=== PATIENT | male | born 1975 ===

== ENCOUNTER 2018-04-12 12:53 | Emergency (ER) | payer OTHER, MEDICAID ==
[2018-04-12 12:53] VITALS: BMI 31.4
[2018-04-12 13:17] VITALS: O2SAT 96
[2018-04-12] MEDS ORDERED: Oxycodone/Acetaminophen 5/325 mg Tab PO STA (13:50)
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
[2018-04-12] MEDS ORDERED: Oxycodone/Acetaminophen 5/325 mg Tab ONE (13:58)
[2018-04-12 14:06] VITALS: BP 133/70; PULSE 78; RESP 16; TEMP 98.2
== END 2018-04-12 14:04 | disposition home or self-care (01) ==
LOC: C.ER 12:53
DX: R07.89 Other chest pain (principal)
CPT/HCPCS: 96372; 99285; J1885

== ENCOUNTER 2018-09-26 20:53 | Emergency (ER) | payer MEDICAID, OTHER ==
[2018-09-26 20:55] VITALS: BMI 31.4
[2018-09-26 21:22] VITALS: O2SAT 98
--- NOTE | 2018-09-26 22:27 | C.PDOC ---
History Of Present Illness 42 year old male, whose past medical history includes hypertension, presents to the ED with several complaints. Patient is requesting STD evaluation, stating his girlfriend has been "going around." Patient also reports left elbow swelling for one week after undergoing mild trauma. Upon triage, patient was found to be hypertensive. Patient reports longstanding noncompliance with his blood pressure medication. Patient denies fever, chills, extremity numbness/weakness. Time Seen by Provider: 09/26/18 21:45 Chief Complaint (Nursing): High Blood Pressure History Per: Patient History/Exam Limitations: no limitations Onset/Duration Of Symptoms: Hrs Current Symptoms Are (Timing): Still Present Additional History Per: Patient Past Medical History Reviewed: Historical Data, Nursing Documentation, Vital Signs Vital Signs: Last Vital Signs Temp 98.5 F 09/26/18 21:16 Pulse 81 09/26/18 21:16 Resp 20 09/26/18 21:16 BP 192/122 H 09/26/18 21:16 Pulse Ox 98 09/26/18 21:16 - Medical History PMH: HTN Surgical History: No Surg Hx Family History: States: Unknown Family Hx - Social History Hx Alcohol Use: Yes Hx Substance Use: No - Immunization History Hx Tetanus Toxoid Vaccination: Yes Hx Influenza Vaccination: No Hx Pneumococcal Vaccination: No Review Of Systems Constitutional: Negative for: Fever, Chills Cardiovascular: Positive for: Other (hypertension ) Musculoskeletal: Positive for: Other (left elbow swelling ) Neurological: Negative for: Weakness, Numbness Physical Exam - Physical Exam Appears: Non-toxic, No Acute Distress, Other (comfortable, texting on phone ) Skin: Normal Color, Warm, Dry Head: Atraumatic, Normacephalic Eye(s): bilateral: Normal Inspection Oral Mucosa: Moist Neck: Supple Chest: Symmetrical, No Deformity, No Tenderness Cardiovascular: Rhythm Regular, No Murmur Respiratory: Normal Breath Sounds, No Rales, No Rhonchi, No Wheezing Male Genital: No Testicular Swelling, No Scrotal Swelling, No Other (lesions ) Extremity: Normal ROM, Capillary Refill (less than 2 seconds ), Swelling (to left olecranon bursa) Neurological/Psych: Oriented x3, Normal Speech, Normal Cognition ED Course And Treatment O2 Sat by Pulse Oximetry: 98 (on RA ) Pulse Ox Interpretation: Normal Medical Decision Making Medical Decision Making: multiple complaints 1. std eval- declines empriic tx. prefers to send gc chlymdia. no urianry complaint no lesions 2. left elbow bursitis- suspec t2/2 bone spur trauma. no e/o of fx on xr 3. high blood bpressure- b/p upon my asssessment 154 systolic in b/l arms. asymptomatic htn. no cardipulm complaints neuro intact Progress: Left elbow XR and GC/Chlamydia swab ordered. Tylenol PO given. Disposition - Disposition Referrals: [facility] [Outside] [facility] [Outside] [facility] [Outside] Disposition: HOME/ ROUTINE Disposition Time: 22:43 Condition: GOOD Additional Instructions: see specialist and clinic. return to er with worsening. Instructions: Bursitis, High Blood Pressure in Adults, Olecranon Bursitis (DC), Screening for Sexually Transmitted Infections Forms: [employer] (Wolof) - Clinical Impression Clinical Impression: Olecranon bursitis, Hypertension, Screening for STD (sexually transmitted disease) - Scribe Statement The provider has reviewed the documentation as recorded by the Scribe (Lynda Patel) Provider Attestation: All medical record entries made by the Scribe were at my direction and personally dictated by me. I have reviewed the chart and agree that the record accurately reflects my personal performance of the history, physical exam, medical decision making, and the department course for this patient. I have also personally directed, reviewed, and agree with the discharge instructions and disposition. Decision To Admit - Pt Status Changed To: Hospital Disposition Of: Inpatient - Admit Certification Admit to Inpatient:: After my assessment, the patient will require hospitalization for at least two midnights. This is because of the severity of symptoms shown, intensity of services needed, and/or the medical risk in this patient being treated as an outpatient. - . Patient Diagnosis: Olecranon bursitis, Hypertension, Screening for STD (sexually transmitted disease)
[2018-09-26 22:45] VITALS: BP 132/78; PULSE 89; RESP 18; TEMP 98.6
--- NOTE | 2018-09-27 12:56 | RAD ---
PROCEDURE: Radiographs of the left elbow. HISTORY: bursitis COMPARISON: None available FINDINGS: BONES: No acute displaced fracture. Large olecranon enthesophyte. JOINTS: No dislocation. SOFT TISSUES: Marked soft tissue swelling. No evidence of radiopaque foreign body. JOINT EFFUSION: No significant joint effusion. OTHER FINDINGS: None IMPRESSION: No acute displaced fracture or dislocation identified. If high clinical index of concern for occult fracture recommend further evaluation with cross-sectional imaging. Large olecranon enthesophyte. Large soft tissue swelling. Findings suggestive of bursitis. Correlate clinically.
== END 2018-09-26 22:45 | disposition home or self-care (01) ==
LOC: C.ER 20:53
DX: M70.22 Olecranon bursitis, left elbow (principal); I10 Essential (primary) hypertension; Z91.14 Patient's other noncompliance with medication regimen; Z11.3 Encounter for screening for infections with a predominantly sexual mode of transmission